=== PATIENT | female | born 1985 | race African-American/Black ===

== ENCOUNTER 2022-08-19 08:52 | Emergency (ER) | payer OTHER, SELFPAY ==
[2022-08-19] MEDS ORDERED: Naproxen 500 MG TAB ONE (09:43)
== END 2022-08-19 11:17 | disposition home or self-care (01) ==
LOC: ERS 08:52
DX: R68.84 Jaw pain (principal); Y04.8XXA Assault by other bodily force, initial encounter
CPT/HCPCS: 70486